=== PATIENT | female | born 1960 | race African-American/Black ===

== ENCOUNTER 2018-08-22 12:17 | Emergency (ER) | payer MEDICARE ==
--- NOTE | 2018-08-22 13:32 | ER Document Report ---
ED Medical Screen (RME) - General Chief Complaint: Abdominal Pain Stated Complaint: BACK/ABDOMINAL PAIN, HEADACHE Time Seen by Provider: 08/22/18 12:32 Mode of Arrival: Ambulatory Information source: Patient Notes: 58-year-old female presents with multiple complaints including headache, back pain, dysuria, abdominal pain. Patient states symptoms have been ongoing for 3 months. She has been recently treated for urinary tract infection with Bactrim. She has been seen by her primary care physician Dr. Haddad without improvement. I have greeted and performed a rapid initial assessment of this patient. A comprehensive ED assessment and evaluation of the patient, analysis of test results and completion of medical decision making process we will be contacted by additional ED providers. PHYSICAL EXAMINATION: GENERAL: Well-appearing, well-nourished and in no acute distress. HEAD: Atraumatic, normocephalic. EYES: Pupils equal round extraocular movements intact, conjunctiva are normal. ENT: Nares patent NECK: Normal range of motion LUNGS: No respiratory distress Musculoskeletal: Normal range of motion NEUROLOGICAL: Normal speech, normal gait. PSYCH: Normal mood, normal affect. SKIN: Warm, Dry, normal turgor, no rashes or lesions noted. TRAVEL OUTSIDE OF THE [place] IN LAST 30 DAYS: No - HPI Onset: Other Onset/Duration: Persistent, Worse Quality of pain: Achy Severity: Moderate - Related Data Smoking: Non-smoker Frequency of alcohol use: None Drug Abuse: None Allergies/Adverse Reactions: iodine [Iodine] Allergy (Verified 10/06/13 09:47) Penicillins Allergy (Verified 10/06/13 09:47) Shellfish * [Shellfish] Allergy (Verified 10/06/13 09:47) Past Medical History - Past Medical History Cardiac Medical History: Reports: Hx Hypertension Psychiatric Medical History: Reports: Hx Anxiety, Hx Depression Past Surgical History: Reports: Hx Section - Immunizations Hx Diphtheria, Pertussis, Tetanus Vaccination: No Physical Exam - Vital signs Vitals: Temp Pulse Resp BP Pulse Ox 98.7 F 76 16 129/54 H 97 08/22/18 12:25 08/22/18 12:25 08/22/18 12:25 08/22/18 12:25 08/22/18 12:25 Course - Vital Signs Vital signs: Temp Pulse Resp BP Pulse Ox 98.7 F 76 16 129/54 H 97 08/22/18 12:25 08/22/18 12:25 08/22/18 12:25 08/22/18 12:25 08/22/18 12:25 Doctor's Discharge - Discharge Referrals: ZACH LACKEY MD [Primary Care Provider] - Follow up as needed
[2018-08-22 14:14] LABS: ABSOLUTE BASOPHILS # (AUTO) 0.1 10^3/uL (0.0-0.2); ABSOLUTE EOSINOPHILS # (AUTO) 0.1 10^3/uL (0.0-0.6); ABSOLUTE LYMPHOCYTES (AUTO) 1.7 10^3/uL (0.5-4.7); ABSOLUTE MONOCYTES (AUTO) 0.4 10^3/uL (0.1-1.4); ABSOLUTE NEUT (AUTO) 6.2 10^3/uL (1.7-8.2); BASOPHILS % (AUTO) 0.7 % (0-2); EOSINOPHILS % (AUTO) 1.1 % (0-6); HEMATOCRIT 38.3 % (36.0-47.0); HEMOGLOBIN 12.8 g/dL (12.0-15.5); LYMPHOCYTES % (AUTO) 19.8 % (13-45); MEAN CORPUSCULAR HEMOGLOBIN 31.1 pg (27.0-33.4); MEAN CORPUSCULAR HGB CONC 33.5 g/dL (32.0-36.0); MEAN CORPUSCULAR VOLUME 93 fl (80-97); MONOCYTES % (AUTO) 4.3 % (3-13); PLATELET COUNT 303 10^3/uL (150-450); RED BLOOD COUNT 4.13 10^6/uL (3.72-5.28); RED CELL DISTRIBUTION WIDTH 14.2 % (11.5-14.0); SEGMENTED NEUTROPHILS % (AUTO) 74.1 % (42-78); TOTAL CELLS COUNTED % (AUTO) 100 %; WHITE BLOOD COUNT 8.4 10^3/uL (4.0-10.5)
[2018-08-22 14:23] LABS: APPEARANCE,URINE CLEAR; BILIRUBIN,URINE NEGATIVE (NEGATIVE); COLOR,URINE YELLOW; GLUCOSE, URINE NEGATIVE (NEGATIVE); KETONES,URINE NEGATIVE (NEGATIVE); LEUKOCYTE ESTERASE,URINE NEGATIVE (NEGATIVE); NITRITE,URINE NEGATIVE (NEGATIVE); PROTEIN,URINE NEGATIVE (NEGATIVE); URINE SPECIFIC GRAVITY 1.015; UROBILINOGEN,URINE NEGATIVE mg/dL (<2.0)
[2018-08-22 14:36] LABS: ALANINE AMINOTRANSFERASE 24 U/L (9-52); ALBUMIN 4.3 g/dL (3.5-5.0); ALKALINE PHOSPHATASE 107 U/L (38-126); ANION GAP 11 (5-19); ASPARTATE AMINO TRANSFERASE 17 U/L (14-36); BILIRUBIN,DIRECT 0.2 mg/dL (0.0-0.4); BILIRUBIN,TOTAL 0.5 mg/dL (0.2-1.3); BLOOD UREA NITROGEN 12 mg/dL (7-20); CALCIUM 9.8 mg/dL (8.4-10.2); CARBON DIOXIDE 25 mmol/L (22-30); CHLORIDE 106 mmol/L (98-107); GLUCOSE 129 mg/dL (75-110); POTASSIUM 4.1 mmol/L (3.6-5.0); SODIUM 141.9 mmol/L (137-145); TOTAL PROTEIN 7.4 g/dL (6.3-8.2)
--- NOTE | 2018-08-22 15:23 | ER Document Report ---
ED General - General Chief Complaint: Abdominal Pain Stated Complaint: BACK/ABDOMINAL PAIN, HEADACHE Time Seen by Provider: 08/22/18 12:32 Mode of Arrival: Ambulatory Notes: Pt. is a 58 y/o female c/o lower back pain. pt. stated that she has been to her PCP Dr. Ruiz multiple times over the last 4-5 months with many different complaints. Stated sometimes her LUQ hurts, sometimes it hurts when she urinates , sometimes she had pain in her lower back that moves down her left posterior leg. Pt. stated she also has pain with sexual intercourse. Stated today she did have a headache, but currently now she only has pain in her lower back that moves down her left lower leg. Stated she was taking Aleve for this pain which was helping but she was worried because she saw on TV that taking medications for too long can make you even more sick. Pt. currently denies headache, chest pain, shortness of breath, nausea, vomiting , abdominal pain, fever, trauma or injury to her back. States intermittently she has dysuria, but is currently on Bactrim for that per PCP. PMH: Prolapsed uterus, hypothyroid, anxiety, TIA, mitral valve prolapse, hypertension, hyperlipidemia Medications: Klonopin, HCTZ, losartan, amlodipine, levothyroxine, Bactrim Allergies: None TRAVEL OUTSIDE OF THE [place] IN LAST 30 DAYS: No - Related Data Allergies/Adverse Reactions: iodine [Iodine] Allergy (Verified 10/06/13 09:47) Penicillins Allergy (Verified 10/06/13 09:47) Shellfish * [Shellfish] Allergy (Verified 10/06/13 09:47) Past Medical History - General Information source: Patient - Social History Smoking Status: Former Smoker Frequency of alcohol use: None Drug Abuse: None Lives with: Spouse/Significant other Family History: Reviewed & Not Pertinent Patient has suicidal ideation: No Patient has homicidal ideation: No - Past Medical History Cardiac Medical History: Reports: Hx Hypertension Renal/ Medical History: Denies: Hx Peritoneal Dialysis Psychiatric Medical History: Reports: Hx Anxiety, Hx Depression Past Surgical History: Reports: Hx Section - Immunizations Hx Diphtheria, Pertussis, Tetanus Vaccination: No Review of Systems - Review of Systems Constitutional: See HPI EENT: No symptoms reported Cardiovascular: See HPI Respiratory: See HPI Gastrointestinal: See HPI Genitourinary: See HPI Female Genitourinary: See HPI Musculoskeletal: See HPI Skin: No symptoms reported Hematologic/Lymphatic: No symptoms reported Neurological/Psychological: No symptoms reported Physical Exam - Vital signs Vitals: Temp Pulse Resp BP Pulse Ox 98.7 F 76 16 129/54 H 97 08/22/18 12:25 08/22/18 12:25 08/22/18 12:25 08/22/18 12:25 08/22/18 12:25 - Notes Notes: GENERAL: Alert, interacts well. No acute distress. HEAD: Normocephalic, atraumatic. EYES: Pupils equal, round, and reactive to light. Extraocular movements intact. ENT: Oral mucosa moist, tongue midline. NECK: Full range of motion. Supple. Trachea midline. LUNGS: Clear to auscultation bilaterally, no wheezes, rales, or rhonchi. No respiratory distress. HEART: Regular rate and rhythm. No murmur ABDOMEN: Soft, non-tender. Non-distended. Bowel sounds present in all 4 quadrants. EXTREMITIES: Moves all 4 extremities spontaneously. No edema, normal radial and dorsalis pedis pulses bilaterally. No cyanosis. Pain with straight leg raise 15 degrees left lower extremity. Patient denies numbness or tingling, stated shooting pain from buttocks down left leg BACK: no cervical, thoracic, lumbar midline tenderness. No saddle anesthesia, normal distal neurovascular exam. Pain left lumbar paraspinal region. NEUROLOGICAL: Alert and oriented x3. Normal speech. PSYCH: Normal affect, normal mood. SKIN: Warm, dry, normal turgor. No rashes or lesions noted. Course - Re-evaluation Re-evalutation: Patient came out to nursing station stating that she felt better. She is requesting discharge. Patient stated the pain in her lower back into her left leg is now gone. Discussed importance of continuing antibiotics for recurrent urinary tract infection and to follow-up with primary care. - Vital Signs Vital signs: Temp Pulse Resp BP Pulse Ox 98.5 F 61 16 134/61 H 100 08/22/18 16:57 08/22/18 16:57 08/22/18 16:57 08/22/18 16:57 08/22/18 16:57 - Laboratory Result Diagrams: 08/22/18 13:52 08/22/18 13:52 Laboratory results interpreted by me: 08/22/18 08/22/18 13:52 13:52 RDW 14.2 H Glucose 129 H Discharge - Discharge Clinical Impression: Sciatic leg pain Condition: Stable Disposition: HOME, SELF-CARE Additional Instructions: Sciatica Your symptoms suggest "sciatica." The pain of sciatica typically radiates down the leg. Numbness in the foot or calf may also occur. Sciatica is caused by irritation of the sciatic nerve or its branches. The irritation can be due to a herniated disk in the spine, swelling and inflammation in the muscles surrounding the sciatic nerve, or direct injury of the nerve itself. Most cases of sciatica will resolve with medical treatment. Bed rest is usually recommended initially. Surgery is only necessary when the condition will not improve with rest and antiinflammatory medication. Muscle relaxers are often given if muscle soreness is present. A CAT scan of the back may be performed if a herniated disk is suspected. Re-examination is necessary if you develop increasing numbness, localized weakness in the foot or ankle, or if the pain does not respond to rest. You have been seen and treated in the emergency room for lower back pain. Due to the pain moving into her left leg sciatica is likely. Your sciatic nerve runs down your left buttocks as we discussed and can become compressed causing the pain. Moist heat and massage will help along with the prescriptions I am going to give you. As always follow-up with primary care in the next 24-48 hours. Return to the emergency room should you develop chest pain, shortness of breath, or any other concerning symptoms Prescriptions: Ketorolac Tromethamine [Toradol 10 mg Tablet] 10 mg PO Q8HP PRN #24 tablet PRN Reason: Cyclobenzaprine HCl [Flexeril 10 mg Tablet] 10 mg PO TIDP PRN #15 tab PRN Reason: Referrals: ZACH LACKEY MD [NO LOCAL MD] - Follow up as needed
[2018-08-22] MEDS ORDERED: KETOROLAC TROMETHAMINE 60 MG/2 ML SDV IM ONE (15:30)
[2018-08-22] MEDS ORDERED: CYCLOBENZAPRINE HCL 10 MG TABLET PO ONE (15:31)
[2018-08-22 16:58] VITALS: BP 134/61
== END 2018-08-22 17:07 | disposition home or self-care (01) ==
LOC: ER 12:17
DX: M54.32 Sciatica, left side (principal); R10.9 Unspecified abdominal pain; M54.5 Low back pain; R51 Headache; R30.0 Dysuria; I10 Essential (primary) hypertension; Z88.0 Allergy status to penicillin; Z91.013 Allergy to seafood; Z87.891 Personal history of nicotine dependence
CPT/HCPCS: 99283; 36415; 85025; 80053; 81001; A9270; J1885

== ENCOUNTER → 2019-03-18 | Outpatient (CLI) | payer MEDICARE ==
--- NOTE | 2019-03-18 14:12 | RADIOLOGY REPORT (SQ) ---
EXAM DESCRIPTION: CT ABD/PELVIS NO ORAL OR IV COMPLETED DATE/TIME: 03/18/2019 1:28 pm REASON FOR STUDY: R10.32 LEFT LOWER QUADRANT PAIN R10.32 LEFT LOWER QUADRANT PAIN COMPARISON: None. TECHNIQUE: CT scan of the abdomen and pelvis performed without intravenous or oral contrast. Images reviewed with lung, soft tissue, and bone windows. Reconstructed coronal and sagittal MPR images revi ewed. All images stored on PACS. All CT scanners at this facility use dose modulation, iterative reconstruction, and/or weight based d osing when appropriate to reduce radiation dose to as low as reasonably achievable (ALARA). [facility]: Dose Right [facility]: CareDose [facility]: Dose Right [facility]: Teradose 4D [facility]: [employer] RADIATION DOSE: CT Rad equipment meets quality standard of care and radiation dose reduction techniq ues were employed. CTDIvol: 25.2 mGy. DLP: 1259 mGy-cm.mGy. LIMITATIONS: None. FINDINGS: LOWER CHEST: No significant findings. No nodules or infiltrates. NON-CONTRASTED LIVER, SPLEEN, ADRENALS: Evaluation limited by lack of IV contrast. No identified sign ificant masses. PANCREAS: No masses. No peripancreatic inflammatory changes. GALLBLADDER: No identified stones by CT criteria. No inflammatory changes to suggest cholecystitis. RIGHT KIDNEY AND URETER: No suspicious masses. Assessment limited by lack of IV contrast. No signif icant calcifications. No hydronephrosis or hydroureter. LEFT KIDNEY AND URETER: No suspicious masses. Assessment limited by lack of IV contrast. No signifi cant calcifications. No hydronephrosis or hydroureter. AORTA AND RETROPERITONEUM: No aneurysm. No retroperitoneal masses or adenopathy. BOWEL AND PERITONEAL CAVITY: No obvious masses or inflammatory changes. No free fluid. APPENDIX: Normal. PELVIS, BLADDER, AND ABDOMINAL WALL:No abnormal masses. No free fluid. Bladder normal. Normal size u terus and ovaries. BONES: No significant findings. OTHER: No other significant finding. IMPRESSION: NO SIGNIFICANT OR ACUTE PROCESS IN THE ABDOMEN OR PELVIS. COMMENT: Quality ID # [id number]: Final reports with documentation of one or more dose reduction techniques (e.g., Automated exposure control, adjustment of the mA and/or kV according to patient size, use of iterative reconstruction technique) TECHNICAL DOCUMENTATION: JOB ID: [id number]- All Rights Reserved Reading location - IP/workstation name: [email or web address]
== END ==
LOC: RAD 12:36
PROVIDERS: ATTEND Internal Medicine
DX: R10.32 Left lower quadrant pain (principal)
CPT/HCPCS: 74176